=== PATIENT | male | born 1970 | race Caucasian/White ===

== ENCOUNTER → 2016-08-28 | Outpatient (CLI) | payer OTHER ==
--- NOTE | 2016-08-28 13:18 | KCIC ---
PROCEDURE MRI brain without contrast. HISTORY Cyclical vomiting with migraine headaches. Symptoms are chronic although have worsened after she head trauma in January 2016. Confusion and double vision. Seizures. TECHNIQUE Sagittal T1, axial T1, axial T2, axial FLAIR, axial T2 gradient, coronal T2, and diffusion imaging with ADC map were performed. Oblique coronal T2 and oblique coronal FLAIR imaging through the temporal lobes was performed. COMPARISON None. FINDINGS The ventricles are normal in size and configuration. There is no acute intracranial hemorrhage or extra-axial fluid collection. There is no mass effect or midline shift. There is no restricted diffusion to suggest an acute infarct. Sagittal midline structures are unremarkable. Pituitary and suprasellar region are unremarkable. Intracranial flow voids are preserved. There is minimal pansinus mucosal thickening. Oblique coronal imaging through the temporal lobes demonstrates no evidence of mesial temporal sclerosis or temporal lobe mass. IMPRESSION No acute intracranial findings. Electronically signed by: Mike Gaines MD (Aug 28, 2016 13:16:35)
== END | disposition home or self-care (01) ==
LOC: KCIC MRI 10:09
PROVIDERS: ATTEND Psychiatry & Neurology Neurology with Special Qualifications in Child Neurology
DX: G43.A1 Cyclical vomiting, in migraine, intractable (principal)
CPT/HCPCS: 70551

== ENCOUNTER → 2016-10-01 | Outpatient (CLI) | payer OTHER ==
--- NOTE | 2016-10-01 14:52 | EEG ---
DATE OF SERVICE: OBJECTIVE: The patient is a 46-year-old male with a history of intractable seizures. DESCRIPTION: This is a digital study. Electrodes are placed according to the international 10-20 system. Bipolar and referential montages are available. Activation procedures typically include hyperventilation and intermittent photic stimulation. INTERPRETATION: The waking background is poorly formed, but ____, 20-50 microvolt activity is observed. Hyperventilation and intermittent photic stimulation are noncontributory. Sleep is not achieved. IMPRESSION: This electroencephalogram with the patient awake only is within normal limits. There is no focal, paroxysmal, or epileptiform activity. Thank you for letting us help with the patient's care. VINCENT SANDERS MD DR: [email or web address]/afia JOB#: [id number] / [id number] SANDHYA Laboy MD
== END | disposition home or self-care (01) ==
LOC: RT 09:13
PROVIDERS: ATTEND Psychiatry & Neurology Neurology with Special Qualifications in Child Neurology
DX: G40.919 Epilepsy, unspecified, intractable, without status epilepticus (principal)
CPT/HCPCS: 95816